=== PATIENT | male | born 2000 | race Caucasian/White ===

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

== ENCOUNTER 2021-07-28 12:35 | Emergency (ER) | payer OTHER, SELFPAY ==
--- NOTE | 2021-07-28 14:18 | XR_ITS ---
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 No fracture or dislocation. Left tib fib: No fracture or dislocation. Left foot: No fracture, dislocation, lytic change, or blastic change evident. No significant degenerative change IMPRESSION: No acute fracture Dictated by: Petar Topete MD 07/28/2021 15:34 Petar Topete MD in OV 07/28/2021 15:34
[2021-07-28 14:33] VITALS: BP 139/79; PULSE 62; RESP 18; TEMP 36.7; O2SAT 100; BMI 22.3
--- NOTE | 2021-07-28 15:43 | HMH.EDUTC ---
[facility] [place] Disposition Clinical Impression: Crushing injury of right leg Qualifiers: Encounter type: initial encounter Qualified Code(s): S87.81XA - Crushing injury of right lower leg, initial encounter Disposition: Home, Self-Care Condition on Discharge: Good Instructions: How to Use Crutches, DI for Ankle Pain, DI for Foot Pain, DI for Leg Pain, DI for Crush Injury Additional Instructions: Rest the extremity, Wear the coty wrap for compression, but loosen it or take it off if your leg swells and it get tight., Elevate the extremity as tolerated while you are resting. Take ibuprofen for pain. I sent in a prescription to your pharmacy. Follow up with Dr. Feliz (orthopedics). I put in a referral but you need to call his office and schedule an appointment. Follow up with your regular doctor. GO TO THE ER FOR ANY WORSENING SYMPTOMS use the crutches for ambulation, rest and keep it elevated as much times as possible to reduce the swelling. Follow up with Dr. Feliz for further evaluation. Prescriptions: Ibuprofen [Ibuprofen 800mg Tablet] 800 mg PO Q8HP PRN #30 tab PRN Reason: Moderate Pain Transmission Status: Received by [facility] #[id number] Referrals: Leonardo Hurst MD [Primary Care Provider] - Isac Feliz MD [Staff Physician] - Forms: Work/School Release Time of Disposition: 15:52 Medical Decision Making - Medical Records Medical records reviewed: No: I reviewed the patient's medical records. - Hung Inquiry Pt receiving controlled substance: No Vital Signs: 07/28/21 14:33 07/28/21 15:54 Temperature 98.1 F 98.1 F Temperature Source Oral Pulse Rate 62 Pulse Rate [Left] 62 Respiratory Rate 18 16 Blood Pressure 139/79 Blood Pressure [Right Arm] 139/79 Blood Pressure Mean [Right Arm] 99 02 Sat by Pulse Oximetry 100 - Radiology Data #1 Image(s): Tib/Fib Image Reviewed: Yes I reviewed the patient's radiology image, Yes I have reviewed radiologist's interpretation Preliminary Findings: Normal/NAD #2 Image(s): Foot/Toes Image Reviewed: Yes I reviewed the patient's radiology image, Yes I have reviewed radiologist's interpretation Preliminary Findings: No Fracture Seen [facility] [place] HPI - General Stated complaint: AO 1016, left leg pain Time Seen by Provider: 07/28/21 15:25 Mode of Arrival: Ambulatory Source of Information: Patient Limitations: No Limitations Description of Symptoms (Recalled from Triage Doc. by RN): pts L lower leg was stomped on by a bull on 07/25. pt is complaining of tib/fib, ankle and foot pain on the L side. HEENT Symptoms (Recalled from RN notes): No Resp Symptoms (Recalled from RN notes): No Skin Symptoms (Recalled from RN notes): No MS Symptoms (Recalled from RN notes): Yes (L lower leg, ankle and foot pain) Functional Status (Recalled from RN notes): na - History of Present Illness Provider Complaint: He states that 3 days ago a bull stepped on his right lower leg, ankle and foot. Since then he has had pain, swelling and bruising in that location. He states that walking on the leg makes it worse. - Related Data Previous Rx's Medication Instructions Recorded Ibuprofen [Ibuprofen 800mg 800 mg PO Q8HP PRN #30 tab 07/28/21 Tablet] Allergies Allergy/AdvReac Type Severity Reaction Status Date / Time No Known Allergies Allergy Verified 10/27/20 09:43 - Worker's Comp Is this a Worker's Comp case?: No [facility] History - Hepatitis A Screen Drug use history?: No High risk sexual behaviors?: No History of sexually transmitted infection?: No Currently employed?: No Childcare worker?: No Do you have indoor plumbing?: Yes Do you have electricity?: Yes Attestation statement:: This patient has been screened for Hepatitis A risk factors. I have reviewed the patient's past medical history: Yes Other Surgeries: Yes: No Previous Surgery - Social History Smoking Status: Never smoker Alcohol Intake: never Occupation
[2021-07-28 15:54] VITALS: BP 139/79; PULSE 62; RESP 16; TEMP 36.7
== END 2021-07-28 15:59 | disposition home or self-care (01) ==
PROVIDERS: Emergency Provider Nurse Practitioner Family; PCP Internal Medicine Adolescent Medicine
DX: S87.81XA Crushing injury of right lower leg, initial encounter (principal); W55.22XA Struck by cow, initial encounter; Y92.79 Other farm location as the place of occurrence of the external cause
CPT/HCPCS: 29515; 73590; 73610; 73630; 99203; G0463

== ENCOUNTER 2022-05-23 11:44 | Emergency (ER) | payer OTHER, SELFPAY ==
[2022-05-23 11:45] VITALS: BP 125/72; PULSE 63; RESP 16; TEMP 36.7; O2SAT 98; BMI 19.4
[2022-05-23 12:41] VITALS: BP 125/72; PULSE 63; RESP 16; TEMP 36.7; O2SAT 98
--- NOTE | 2022-05-23 12:58 | HMH.EDUTC ---
[facility] [place] Disposition Clinical Impression: Laceration Disposition: Home, Self-Care Condition on Discharge: Good Instructions: How to Care for a Laceration After Repair, DI for Laceration Repair Additional Instructions: Suture instructions: You have required stitches today. Please read the following instructions so you know how to care for them: 1. Keep wound area dry for the first 24 hours. 2 May clean gently with mild soap and water, after 48 hours to prevent crusting over suture knots. 3. You may shower if your provider gives permission but do not take a bath until the skin is healed.. 4. Never leave a wet dressing or Band-Aid on your stitches as this allows bacteria to reach the area and may cause infection. Band-aids can cause the wound to sweat and not recommended to wear for long periods of time Watch for signs of infection: Increasing redness, tenderness or warmth around the suture site Unusual swelling around the site Appearance of pus around each suture or any red streaks Fever If you develop any of the above signs or symptoms of infection, Follow up with Family Physician immediately 5. Suture removal in 8-10___days 6. Return to [facility] or follow up with family doctor for removal. This can be done by any medical provider during regular hours on Tuesday through Tuesday, by appointment. Referrals: Leonardo Hurst MD [Primary Care Provider] - As needed Time of Disposition: 13:26 Medical Decision Making - Hung Inquiry Pt receiving controlled substance: No Hung was queried for this patient: No Vital Signs: 05/23/22 11:45 05/23/22 12:41 Temperature 98.1 F 98.1 F Temperature Source Oral Oral Pulse Rate [Left Radial] 63 63 Respiratory Rate 16 16 Blood Pressure [Left Arm] 125/72 125/72 Blood Pressure Mean [Left Arm] 89 89 Blood Pressure Source [Left Arm] Automatic Cuff Blood Pressure Position [Left Arm] Sitting 02 Sat by Pulse Oximetry 98 98 Oxygen Delivery Method Room Air Orders (Tests/Meds): ED MEDICATIONS Discontinued Medications Generic Name Dose Route Start Last Admin Trade Name Freq PRN Reason Stop Dose Admin Tetanus/Reduced Diphtheria/Acell Pertussis 0.5 ml 05/23/22 13:00 Tet/Diphth/Pert-Adult 0.5ml Syringe IM 05/23/22 13:01 .ONCE ONE [facility] [place] HPI - General Stated complaint: AO [id number] right index finger,lac Time Seen by Provider: 05/23/22 12:58 Mode of Arrival: Ambulatory Source of Information: Patient Limitations: No Limitations Description of Symptoms (Recalled from Triage Doc. by RN): patient comes in with a laceration to right index finger. patient was taking up carpet and sliced his finger HEENT Symptoms (Recalled from RN notes): No Resp Symptoms (Recalled from RN notes): No Skin Symptoms (Recalled from RN notes): Yes MS Symptoms (Recalled from RN notes): No Functional Status (Recalled from RN notes): n/a - History of Present Illness Provider Complaint: Patient states that he was taking up carpet when he cut his right index finger with a razor blade States that he noticed he was bleeding from the pad of his right index finger and it freaked him out from the blood so he came in to get it checked out - Related Data Previous Rx's Medication Instructions Recorded Ibuprofen [Ibuprofen 800mg 800 mg PO Q8HP PRN #30 tab 07/28/21 Tablet] Allergies Allergy/AdvReac Type Severity Reaction Status Date / Time No Known Allergies Allergy Verified 05/23/22 12:47 - Worker's Comp Is this a Worker's Comp case?: No [facility] History - Hepatitis A Screen Attestation statement:: This patient has been screened for Hepatitis A risk factors. I have reviewed the patient's past medical history: Yes Other Surgeries: Yes: No Previous Surgery - Social History Smoking Status: Never smoker Alcohol Intake: never Occupational Status: other Housing: house Household Members: family Family Hx:: Cancer ROS Obtained: Yes All systems reviewed & no additional co
[2022-05-23 13:33] VITALS: BP 125/72; PULSE 63; RESP 16; TEMP 36.7
== END 2022-05-23 13:41 | disposition home or self-care (01) ==
LOC: ER 11:58 → UTC 12:11
PROVIDERS: Emergency Provider Nurse Practitioner; PCP Internal Medicine Adolescent Medicine
DX: S61.210A Laceration without foreign body of right index finger without damage to nail, initial encounter (principal); W26.0XXA Contact with knife, initial encounter; Z23 Encounter for immunization
CPT/HCPCS: 12001; 90471; 90715; 99213; G0463

== ENCOUNTER 2022-06-02 11:47 | Emergency (ER) | payer OTHER, SELFPAY ==
[2022-06-02 12:44] VITALS: BP 117/78; PULSE 78; RESP 16; TEMP 36.8; O2SAT 98
[2022-06-02 12:46] VITALS: BP 117/78; PULSE 78; RESP 16; TEMP 36.8
== END 2022-06-02 12:46 | disposition home or self-care (01) ==
PROVIDERS: Emergency Provider Nurse Practitioner; PCP Internal Medicine Adolescent Medicine
DX: Z48.02 Encounter for removal of sutures (principal)

== ENCOUNTER 2022-06-06 13:14 | Emergency (ER) | payer OTHER, SELFPAY ==
--- NOTE | 2022-06-06 13:20 | XR_ITS ---
PROCEDURE INFORMATION: Exam: XR Left Ribs with PA Chest Exam date and time: 06/06/2022 1:16 PM Age: 22 years old Clinical indication: Pain; Other: Bull riding injury, left ribs; Additional info: Injury bull riding TECHNIQUE: Imaging protocol: Radiologic exam of the Left ribs with PA chest. Views: 3 views COMPARISON: CR CXR CHEST(2 VIEWS-NOT PORTABLE) 09/12/2015 4:31 PM FINDINGS: Lungs: Unremarkable. No consolidation. Pleural spaces: Unremarkable. No pleural effusion. No pneumothorax. Heart/Mediastinum: Unremarkable. No cardiomegaly. Bones/joints: Unremarkable. IMPRESSION: No acute findings.
--- NOTE | 2022-06-06 13:57 | EXP.UTC ---
Discharge Plan Disposition Patient Disposition: Home, Self-Care Condition: Good Prescriptions Prescriptions: New cyclobenzaprine 10 mg Tablet 10 mg PO BID PRN (Reason: Muscle Spasm) Qty: 20 0RF ibuprofen [IBU] 800 mg tablet 800 mg PO Q8HP PRN (Reason: Moderate Pain) Qty: 30 0RF No Action ibuprofen 800 MG tablet 800 mg PO Q8HP PRN (Reason: Moderate Pain) Qty: 30 0RF Referrals Follow up/Referrals: Leonardo Hurst MD [Primary Care Provider] - See instructions Activity Restrictions/Add. Instructions Additional Instructions/Restrictions: Go home and rest. It would be best if you rested tomorrow too. No heavy lifting, No twistin for the next few days. Take the medications as directed. The muscle relaxer (cyclobenzaprine--Flexeril) will make you drowsy, so don't drive or operate heavy machinery after taking it. It probably won't help your rib pain much, but it may help you get comfortable so you can sleep some. Follow up with your regular doctor. 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 This injury happened today. He is having left rib pain and tenderness. His pain is worse with deep breathing and coughing. He denies any other injury. He denies shortness of breath and coughing up blood. Related Data Previous Rx's Medication Instructions Recorded ibuprofen 800 mg tablet 800 mg PO Q8HP PRN Moderate Pain 07/28/21 #30 tabs cyclobenzaprine 10 mg tablet 10 mg PO BID PRN Muscle Spasm #20 06/06/22 tabs ibuprofen 800 mg tablet (IBU) 800 mg PO Q8HP PRN Moderate Pain 06/06/22 #30 tabs Allergies Allergy/AdvReac Type Severity Reaction Status Date / Time No Known Allergies Allergy Verified 06/06/22 14:07 [facility] Social History Smoking Status: Never smoker alcohol intake: never current occupational status: other household members: family housing: house ROS Obtained: Yes All systems reviewed & no additional complaints except as documented Constitutional Constitutional: Denies chills and Denies fever(s) ENT Ears, Nose, Mouth, and Throat: Denies sore throat Cardiovascular Cardiovascular: Reports as per HPI and Denies dyspnea Respiratory Respiratory: Denies shortness of breath, Denies chest congestion, Denies cough and Denies dyspnea Gastrointestinal Gastrointestingal: Denies nausea or vomiting Integumentary/Breasts Skin/Breast: Denies redness, Denies rash and Denies wounds Neurologic Neurologic: Denies paresthesias Physical Exam General General appearance: alert and in no apparent distress Head Head exam: atraumatic, normocephalic and normal inspection Eye Eye exam: Present normal appearance, PERRL and EOMI ENT ENT exam: Present normal exam, normal oropharynx, mucous membranes moist, TM's normal bilaterally and normal external ear exam Neck Neck exam: Present normal inspection, full ROM and trachea midline; Absent meningismus or lymphadenopathy Chest Chest inspection: Present symmetric chest wall rise and tenderness; Absent normal inspection Respiratory Respiratory exam: Present normal lung sounds bilaterally; Absent respiratory distress Cardiovascular Cardiovascular exam: Present regular rate and normal rhythm; Absent JVD Abdominal Exam Abdominal exam: Present soft and normal bowel sounds; Absent distention, tenderness or guarding Extremities Exam Extremities exam: Present normal inspection, full ROM
[2022-06-06 14:03] VITALS: BP 121/81; PULSE 67; RESP 18; TEMP 37.1; O2SAT 99
[2022-06-06 14:38] VITALS: BP 121/81; PULSE 67; RESP 18; TEMP 37.1
== END 2022-06-06 14:43 | disposition home or self-care (01) ==
PROVIDERS: Emergency Provider Nurse Practitioner Family; PCP Internal Medicine Adolescent Medicine
DX: S20.212A Contusion of left front wall of thorax, initial encounter (principal); M62.838 Other muscle spasm; Z79.1 Long term (current) use of non-steroidal anti-inflammatories (NSAID); V80.018A Animal-rider injured by fall from or being thrown from other animal in noncollision accident, initial encounter
CPT/HCPCS: 71101; 99213; G0463